=== PATIENT | female | born 1975 | race Native Hawaiian/Other Pacific Islander ===

== ENCOUNTER 2017-01-03 21:12 | Emergency (ER) | payer OTHER ==
[2017-01-03 21:26] VITALS: TEMP 97.9; O2SAT 98
--- NOTE | 2017-01-03 22:49 | C.PDOC ---
History Of Present Illness 41 Y/O FEMALE C/O WORSENING DIZZINESS SINCE YESTERDAY. SENT TO ER BY PMD DR. STONE. REPORTS ASSOCIATED NAUSEA AND 1 EPISODE VOMITING PRIOR TO ARRIVAL. SHE REPORTS DIZZINESS WORSENS WITH CHANGE IN HEAD POSITION, DESCRIBES ROOM SPINNING. PT WORKS RN AT [employer]. NOTES SIMILAR SYMPTOMS LAST YEAR, RESOLVED WITH ZOFRAN. DENIES HEADACHE, EXTREMITY WEAKNESS, EXTREMITY NUMBNESS, OR OTHER ASSOC SX. PT REQUESTS CT SCAN. Time Seen by Provider: 01/03/17 22:39 Chief Complaint (Nursing): Dizziness/Lightheaded History Per: Patient History/Exam Limitations: no limitations Onset/Duration Of Symptoms: Days Current Symptoms Are (Timing): Worse Activity At Onset Of Symptoms: Change In Head Position Fall Associated With With Symptoms: No Past Medical History Reviewed: Historical Data, Nursing Documentation, Vital Signs Vital Signs: Last Vital Signs Temp 97.9 F 01/03/17 21:20 Pulse 75 01/03/17 21:20 Resp 18 01/03/17 21:20 BP 122/82 01/03/17 21:20 Pulse Ox 98 01/03/17 23:55 - Medical History PMH: No Chronic Diseases Family History: States: Unknown Family Hx - Social History Hx Alcohol Use: No Hx Substance Use: No - Immunization History Hx Tetanus Toxoid Vaccination: No Hx Influenza Vaccination: No Hx Pneumococcal Vaccination: No Review Of Systems Except As Marked, All Systems Reviewed And Found Negative. Constitutional: Negative for: Fever, Chills Respiratory: Negative for: Shortness of Breath, Wheezing Gastrointestinal: Positive for: Nausea, Vomiting Skin: Negative for: Rash Neurological: Positive for: Dizziness. Negative for: Weakness, Numbness, Headache Physical Exam - Physical Exam Appears: Non-toxic, No Acute Distress Skin: Warm, Dry Head: Atraumatic, Normacephalic Eye(s): bilateral: PERRL, EOMI, Other (INDUCIBLE VERTIGO WITH BILATERAL HORIZONTAL GAZE TEST. NO NYSTAGMUS. ) Ear(s): Bilateral: Normal Oral Mucosa: Moist Neck: Supple Chest: Symmetrical Cardiovascular: Rhythm Regular Respiratory: Normal Breath Sounds, No Rales, No Rhonchi, No Wheezing Extremity: Normal ROM, Capillary Refill (< 2 SEC. ), Other (MOVING ALL EXTREMITIES SPONTANEOUSLY) Neurological/Psych: Oriented x3, Normal Speech, Normal Cognition ED Course And Treatment - Laboratory Results Result Diagrams: 01/03/17 22:57 01/03/17 22:57 ECG: Interpreted By Me ECG Rhythm: Sinus Rhythm ECG Interpretation: Normal Rate From EC O2 Sat by Pulse Oximetry: 98 (RA) Pulse Ox Interpretation: Normal Progress - Re-Evaluation Re-evaluation Note: 01/03/17 22:49 ZOFRAN, ANTIVERT, IVFs ORDERED. CT HEAD, EKG, BLOODWORK. 01/03/17 23:55 EXAM UNCH. WILL REEVAL AFTER MED DOSING 01/04/17 00:44 feels better. ambul w residual vertigo, still present w extreme and rapid position change. neuro intact. pt wishes dc home - Data Reviewed Data Reviewed: Lab, Diagnostic imaging, Old records Disposition Counseled Patient/Family Regarding: Studies Performed, Diagnosis, Need For Followup, Rx Given - Disposition Referrals: THONG Bullard [Other] Disposition: HOME/ ROUTINE Disposition Time: 00:45 Condition: IMPROVED Prescriptions: Meclizine [Antivert] 50 mg PO TID PRN #21 tab PRN Reason: Dizziness Ondansetron [Zofran Odt] 4 mg PO TID PRN #9 odt PRN Reason: Nausea/Vomiting Instructions: Vertigo (ED) Forms: Work Excuse - Clinical Impression Clinical Impression: Vertigo, Nausea - Scribe Statement The provider has reviewed the documentation as recorded by the Devon Quintanilla All medical record entries made by the Vaughnibjose g were at my direction and personally dictated by me. I have reviewed the chart and agree that the record accurately reflects my personal performance of the history, physical exam, medical decision making, and the department course for this patient. I have also personally directed, reviewed, and agree with the discharge instructions and disposition.
[2017-01-03] MEDS ORDERED: Sodium Chloride 0.9% 1,000 ML IV ONE (22:50)
[2017-01-03] MEDS ORDERED: Sodium Chloride 0.9% 1,000 ML ONE (22:57)
[2017-01-03 23:00] LABS: BASO % 0.3 % (0.0-2.0); EOS # 0.1 K/uL (0.0-0.7); EOS % 0.6 % (0.0-4.0); HEMATOCRIT 38.9 % (34.0-47.0); LYMPH % 11.1 % (20.0-40.0); MEAN CELL VOLUME 94.9 fL (81.0-99.0); MEAN CORPUSCULAR HEMOGLOBIN 30.7 pg (27.0-31.0); MEAN CORPUSCULAR HGB CONC 32.4 g/dL (33.0-37.0); MEAN PLATELET VOLUME 9.1 fL (7.2-11.7); MONO # 0.5 K/uL (0.0-0.8); MONO % 5.2 % (0.0-10.0); WHITE BLOOD COUNT 9.1 K/uL (4.8-10.8)
[2017-01-03 23:09] LABS: CHLORIDE 101 mmol/L (98-107); POTASSIUM 3.7 mmol/L (3.6-5.2); SODIUM 139 mmol/L (132-148)
[2017-01-03 23:12] LABS: BLOOD UREA NITROGEN 9 mg/dL (7-17); CARBON DIOXIDE 26 mmol/L (22-30); GFR AFRICAN-AMERICAN > 60; GLUCOSE,RANDOM 135 mg/dL (65-105)
[2017-01-03 23:13] LABS: CALCIUM 8.9 mg/dl (8.6-10.4)
--- NOTE | 2017-01-03 23:45 | CT ---
EXAM: CT Head Without Intravenous Contrast CLINICAL HISTORY: 41 years old, female; Signs and symptoms; Dizziness; Additional info: Vertigo TECHNIQUE: Axial computed tomography images of the head/brain without intravenous contrast. This CT exam was performed using one or more of the following dose reduction techniques: automated exposure control, adjustment of the mA and/or kV according to patient size, and/or use of iterative reconstruction technique. COMPARISON: No relevant prior studies available. FINDINGS: Brain: Minimal atrophy. No intracranial hemorrhage. No mass. No definite edema. Ventricles: No hydrocephalus. Bones/joints: No acute fracture. Soft tissues: Unremarkable. Sinuses: No acute sinusitis. Mastoid air cells: No mastoid effusion. Orbits: Unremarkable as visualized. IMPRESSION: 1. No acute intracranial abnormality. 2. Incidental/non-acute findings are described above.
[2017-01-04 00:46] VITALS: BP 118/70; PULSE 68; RESP 20
--- NOTE | 2017-01-10 09:12 | CARD ---
APPROVED REPORT EKG Measurement Heart [id number] <Conclusion> Normal sinus rhythm Low voltage QRS Borderline ECG
== END 2017-01-04 01:09 | disposition home or self-care (01) ==
LOC: C.ER 21:12
DX: R42 Dizziness and giddiness (principal); R11.0 Nausea
CPT/HCPCS: 70450; 80048; 85025; 96361; 96374; 99285; J2405; J7040

== ENCOUNTER 2018-08-24 13:12 | Emergency (ER) | payer OTHER ==
[2018-08-24 13:13] VITALS: BMI 22.1
[2018-08-24 13:33] VITALS: BP 125/77; PULSE 79; RESP 18; TEMP 99.3; O2SAT 100
[2018-08-24] MEDS ORDERED: Tetanus/Diphtheria Toxoids 0.5 ml Syringe IM ONE (13:35)
[2018-08-24] MEDS ORDERED: Tdap Vaccine 0.5 ml Vial (10-64 yrs) IM ONE (13:44)
[2018-08-24 13:59] LABS: BASO % 0.3 % (0.0-2.0); EOS # 0.1 K/uL (0.0-0.7); EOS % 1.4 % (0.0-4.0); HEMOGLOBIN 12.6 g/dL (11.0-16.0); LYMPH # 1.6 K/uL (1.0-4.3); MEAN CELL VOLUME 94.2 fL (81.0-99.0); MEAN CORPUSCULAR HEMOGLOBIN 31.9 pg (27.0-31.0); MEAN CORPUSCULAR HGB CONC 33.9 g/dL (33.0-37.0); MONO # 0.6 K/uL (0.0-0.8); MONO % 8.5 % (0.0-10.0); NEUT # 4.2 K/uL (1.8-7.0); NEUT % 64.8 % (50.0-75.0); RBC 3.95 Mil/uL (3.80-5.20); RED CELL DISTRIBUTION WIDTH 12.7 % (11.5-14.5); WHITE BLOOD COUNT 6.5 K/uL (4.8-10.8)
[2018-08-24 14:02] LABS: HCG,QUALITATIVE URINE NEGATIVE (NEGATIVE); SQUAMOUS EPITHIAL < 1 /hpf (0-5); URINE BACTERIA RARE (<OCC); URINE BILIRUBIN NEGATIVE (NEGATIVE); URINE BLOOD 1+ (NEGATIVE); URINE CLARITY Clear (Clear); URINE COLOR Straw (YELLOW); URINE GLUCOSE (UA) NORMAL (Normal); URINE LEUKOCYTE ESTERASE NEG Leu/uL (Negative); URINE PROTEIN NEGATIVE (NEGATIVE); URINE UROBILINOGEN NORMAL mg/dL (0.2-1.0)
[2018-08-24 14:21] LABS: ALB/GLOB RATIO 1.3 (1.0-2.1); ALBUMIN 4.2 g/dL (3.5-5.0); ALT/SGPT 38 U/L (9-52); AMYLASE 94 U/L (30-110); AST/SGOT 47 U/L (14-36); BLOOD UREA NITROGEN 11 mg/dL (7-17); CALCIUM 8.7 mg/dl (8.6-10.4); GFR NON-AFRICAN AMERICAN > 60
--- NOTE | 2018-08-24 14:40 | C.PDOC ---
History Of Present Illness 43 year old female presents to the ED for evaluation of left index finger injury. Patient is a RN at [employer]. Reports she was removing Port-O-Cath when she accidentally punctured her finger with the needle. Dr. Dasilva ordered b lood from the source patient. Source patient's records were reviewed - HIV testing was negative 3 years ago. Patient denied PEP because source patient is low risk. Tetanus vaccination is not UTD. Time Seen by Provider: 08/24/18 13:35 Chief Complaint (Nursing): Needle Stick History Per: Patient History/Exam Limitations: no limitations Onset/Duration Of Symptoms: Mins Current Symptoms Are (Timing): Still Present Past Medical History Reviewed: Historical Data, Nursing Documentation, Vital Signs Vital Signs: Last Vital Signs Temp 99.3 F 08/24/18 13:27 Pulse 79 08/24/18 13:27 Resp 18 08/24/18 13:27 BP 125/77 08/24/18 13:27 Pulse Ox 100 08/24/18 13:27 - Medical History PMH: No Chronic Diseases Surgical History: No Surg Hx Denies: Pacemaker Family History: States: No Known Family Hx - Social History Hx Alcohol Use: No Hx Substance Use: No - Immunization History Hx Tetanus Toxoid Vaccination: No Hx Influenza Vaccination: No Hx Pneumococcal Vaccination: No Review Of Systems Except As Marked, All Systems Reviewed And Found Negative. Constitutional: Negative for: Fever, Chills Skin: Positive for: Other (left index finger needle prick ) Physical Exam - Physical Exam Appears: Non-toxic, No Acute Distress Skin: Warm, Dry, No Rash, Other (left index finger palmar middle phalanx with puncture wound, no active bleeding, no gross contamination, no erythema or swelling) Head: Normacephalic Eye(s): bilateral: Normal Inspection Nose: Normal Oral Mucosa: Moist Neck: Supple Chest: Symmetrical Cardiovascular: Rhythm Regular Respiratory: Normal Breath Sounds, No Rales, No Rhonchi, No Wheezing Neurological/Psych: Oriented x3, Normal Speech Gait: Steady ED Course And Treatment - Laboratory Results Result Diagrams: 08/24/18 13:50 08/24/18 13:50 O2 Sat by Pulse Oximetry: 100 (RA) Pulse Ox Interpretation: Normal Progress Note: Tetanus vaccination given. Blood collected and sent to the lab for analysis. Wound cleaned and dressing applied. Instructed to return to ER if symptoms worsen or new symptoms arise. Patient referred to Employee health. Disposition - Disposition Disposition: HOME/ ROUTINE Disposition Time: 14:40 Condition: STABLE Additional Instructions: Follow up in Employee health clinic within 1-2 days. Follow HIV result of the source patient. Return to ED if feel worse. Instructions: Blood or Body Fluid Exposure Forms: [facility] [facility] (Maltese) - Clinical Impression Clinical Impression: Needle stick injury - PA / BEATER OUT / Resident Statement MD/DO has reviewed & agrees with the documentation as recorded. - Scribe Statement The provider has reviewed the documentation as recorded by the Scribe Marce Gamez All medical record entries made by the Devon were at my direction and personally dictated by me. I have reviewed the chart and agree that the record accurately reflects my personal performance of the history, physical exam, medical decision making, and the department course for this patient. I have also personally directed, reviewed, and agree with the discharge instructions and disposition.
[2018-08-24 14:50] LABS: HEPATITIS B SURFACE AG Negative (NEGATIVE)
[2018-08-24 15:39] LABS: HEPATITIS A IGM NEGATIVE (NEGATIVE); HEPATITIS B CORE AB NEGATIVE (NEGATIVE)
[2018-08-24 17:27] LABS: HEPATITIS C ANTIBODY NEGATIVE (NEGATIVE)
== END 2018-08-24 14:21 | disposition home or self-care (01) ==
LOC: C.ER 13:12
DX: S61.231A Puncture wound without foreign body of left index finger without damage to nail, initial encounter (principal); W46.0XXA Contact with hypodermic needle, initial encounter; Y92.238 Other place in hospital as the place of occurrence of the external cause; Y99.0 Civilian activity done for income or pay; Z23 Encounter for immunization

== ENCOUNTER 2018-10-11 08:01 | Outpatient (CLI) | payer BC | END 2018-10-11 08:02 | disposition home or self-care (01) | LOC: C.LAB 08:01 | DX: K82.4 Cholesterolosis of gallbladder (principal); N30.10 Interstitial cystitis (chronic) without hematuria; Z68.23 Body mass index [BMI] 23.0-23.9, adult ==

== ENCOUNTER 2018-10-17 07:54 | Outpatient (CLI) | payer OTHER | END 2018-10-17 07:55 | disposition home or self-care (01) | LOC: C.USIC 07:54 | DX: K82.4 Cholesterolosis of gallbladder (principal) ==

== ENCOUNTER 2018-11-16 15:44 | Outpatient (CLI) | payer OTHER | END 2018-11-16 15:45 | disposition home or self-care (01) | LOC: C.LAB 15:44 ==

== ENCOUNTER → 2018-11-22 | Outpatient (CLI) | payer OTHER | LOC: C.LAB 07:04 ==

== ENCOUNTER 2018-11-25 07:17 | Outpatient (CLI) | payer OTHER | END 2018-11-25 07:18 | disposition home or self-care (01) | LOC: C.CTH 07:17 ==

== ENCOUNTER 2019-01-01 15:29 | Outpatient (CLI) | payer OTHER | END 2019-01-01 15:30 | disposition home or self-care (01) | LOC: C.USIC 15:29 | DX: K82.4 Cholesterolosis of gallbladder (principal); N30.10 Interstitial cystitis (chronic) without hematuria; Z68.23 Body mass index [BMI] 23.0-23.9, adult ==

== ENCOUNTER 2019-01-10 11:23 | Outpatient (CLI) | payer OTHER | END 2019-01-10 11:24 | disposition home or self-care (01) | LOC: C.LAB 11:23 | DX: R31.21 Asymptomatic microscopic hematuria (principal) ==

== ENCOUNTER 2019-01-10 11:30 | Outpatient (CLI) | payer OTHER | END 2019-01-10 11:31 | disposition home or self-care (01) | LOC: C.LAB 11:30 | DX: K82.4 Cholesterolosis of gallbladder (principal); N30.10 Interstitial cystitis (chronic) without hematuria; Z68.23 Body mass index [BMI] 23.0-23.9, adult ==

== ENCOUNTER 2019-01-13 15:42 | Outpatient (CLI) | payer OTHER | END 2019-01-13 15:43 | disposition home or self-care (01) | LOC: C.USIC 15:42 | DX: R10.0 Acute abdomen (principal) ==